=== PATIENT | female | born 1955 | race Caucasian/White ===

== ENCOUNTER 2017-07-06 01:55 | Emergency (ER) | payer SELFPAY ==
[~2017-07-06] VITALS: Ht 167.6 cm; Wt 81.6 kg
[2017-07-06 02:39] LABS: Basophils # (auto) 0.1 uL; Basophils % (auto) 0.6 % (0.0-2.0); Eosinophils # (auto) 0 uL; Eosinophils % (auto) 0.3 % (0.0-7.0); Hemoglobin 15.1 g/dL (12.2-16.2); Lymphocytes # (auto) 0.8 uL; Lymphocytes % (auto) 8.4 % (10.0-50.0); Mean Corpuscular Hemoglobin 32.5 pg (28.0-32.0); Mean Corpuscular Hgb Conc. 33.4 g/dL (32.0-36.0); Mean Corpuscular Volume 97.2 fL (80.0-100.0); Monocytes # (auto) 0.3 uL; Monocytes % (auto) 3.6 % (0.0-12.0); Neutrophils % (auto) 87.1 % (37.0-80.0); Nucleated Red Blood Cells % 0.1 %; Platelet Count (auto) 129 10^3/uL (140-450); Red Blood Cells 4.63 10^6/uL (4.0-5.20); White Blood Cell 9.2 10^3/uL (4.4-10.8)
[2017-07-06 03:00] LABS: Alanine Aminotransferase 27 U/L (13-56); Albumin 4.1 g/dL (3.4-5.0); Anion Gap 16 (5-15); Aspartate Aminotransferase 39 U/L (15-37); BUN/Creatinine Ratio 10.5; Blood Urea Nitrogen 11 mg/dL (7-18); Calcium 9.7 mg/dL (8.5-10.1); Carbon Dioxide 26 mmol/L (21-32); Chloride 95 mmol/L (98-107); GFR African American 69 mL/min; GFR Non-African American 57 mL/min; Glucose 152 mg/dL (74-106); Sodium 137 mmol/L (136-145)
[2017-07-06 03:04] LABS: Alkaline Phosphatase 91 U/L (45-117); Bilirubin, Total 1.2 mg/dL (0.2-1.0); Total Protein 8.3 g/dL (6.4-8.2)
[2017-07-06 03:06] LABS: Potassium 2.9 mmol/L (3.5-5.1)
[2017-07-06] MEDS ORDERED: POTASSIUM CHL 20 Meq TABLET PO ONE (03:15)
[2017-07-06] MEDS ORDERED: POTASSIUM CHL 20MEQ/100ML 100 ML IV SCH (03:30)
[2017-07-06] MEDS ORDERED: POTASSIUM CHL 20MEQ/100ML 200 ML IV ONE (03:44)
[2017-07-06 07:37] VITALS: BP 147/85
== END 2017-07-06 11:05 | disposition home or self-care (01) ==
LOC: EDBD 01:55 → ER 02:05
DX: S00.83XA Contusion of other part of head, initial encounter (principal); I50.9 Heart failure, unspecified; E07.9 Disorder of thyroid, unspecified; W06.XXXA Fall from bed, initial encounter; Y93.89 Activity, other specified; Y99.8 Other external cause status; Y92.89 Other specified places as the place of occurrence of the external cause
CPT/HCPCS: 36415; 70450; 70486; 72125; 72128; 72131; 80053; 84484; 85025; 93005; 99285; J3480

== ENCOUNTER 2019-08-03 05:59 | Emergency (ER) | payer MEDICAID, OTHER ==
[~2019-08-03] VITALS: Ht 167.6 cm; Wt 45.4 kg
[2019-08-03 06:54] LABS: Red Blood Cells 3.45 10^6/uL (4.0-5.20)
[2019-08-03 06:56] LABS: Hematocrit 31.2 % (36.0-46.0); Hemoglobin 9.2 g/dL (12.2-16.2); Mean Corpuscular Hemoglobin 26.8 pg (28.0-32.0); Mean Corpuscular Hgb Conc. 29.7 g/dL (32.0-36.0); Mean Corpuscular Volume 90.5 fL (80.0-100.0); Platelet Count (auto) 275 10^3/uL (140-450)
[2019-08-03 07:14] LABS: Red Cell Distribution Width 21.1 % (11.8-14.3)
[2019-08-03 07:16] LABS: Basophils % (manual) 0 (0.0-2.0); Blast Cells 0; Eosinophils % (manual) 0 (0-7); Metamyelocytes % 0; Promyelocytes % 0; Reactive Lymphocytes 0
[2019-08-03 07:26] LABS: Albumin 2.4 g/dL (3.4-5.0); Calcium 9.6 mg/dL (8.5-10.1); Potassium 3.8 mmol/L (3.5-5.1)
[2019-08-03] MEDS ORDERED: SODIUM CHLORIDE 0.9% 1,000 ML IV ONE ×2 (07:30→08:30)
[2019-08-03 07:33] LABS: BUN/Creatinine Ratio 35.7; Bilirubin, Total 0.4 mg/dL (0.2-1.0); Total Protein 7.8 g/dL (6.4-8.2)
[2019-08-03 07:37] LABS: Band Neutrophils % (manual) 2; Lymphocytes % (manual) 19 (10.0-50.0); Monocytes % (manual) 3 (0-12); Myelocytes % 2
[2019-08-03] MEDS ORDERED: PIPERACILLIN-TAZOB 3.375GM 100 ML IV ONE (09:00)
[2019-08-03 09:08] LABS: Urine Bacteria NONE SEEN /hpf (None Seen); Urine Blood TRACE /uL (Negative); Urine Hyaline Cast MANY /lpf (0 - 2); Urine Mucus FEW (None Seen); Urine Specific Gravity 1.024 (1.001-1.035); Urine WBC 3 /hpf (0 - 5)
[2019-08-03 12:00] VITALS: BP 89/58
== END 2019-08-03 12:03 | disposition short-term general hospital (02) ==
LOC: ER 05:59 → EDBD 05:59 → ER 12:03
DX: G93.41 Metabolic encephalopathy (principal); J18.9 Pneumonia, unspecified organism; I50.9 Heart failure, unspecified; E43 Unspecified severe protein-calorie malnutrition; Z68.1 Body mass index [BMI] 19.9 or less, adult
CPT/HCPCS: 36415; 36556; 70450; 71045; 80053; 81001; 82728; 83605; 83615; 84484; 85007; 85027; 87040; 93005; 96361; 96365; 96366; 99291; J2543; J7030